=== PATIENT | female | born 1965 | race Caucasian/White ===

== ENCOUNTER 2021-10-03 13:27 | Emergency (ER) | payer OTHER ==
[2021-10-03 13:41] VITALS: BP 143/84; TEMP 98.2; BMI 28.3
[2021-10-03] MEDS ORDERED: diazePAM 5 MG TABLET PO ONE (14:27)
[2021-10-03] MEDS ORDERED: KETOROLAC TROMETHAMINE 30 MG/1 ML VIAL IM ONE (14:27)
[2021-10-03] MEDS ORDERED: KETOROLAC TROMETHAMINE 30 MG/1 ML VIAL ONE (14:32)
[2021-10-03] MEDS ORDERED: diazePAM 5 MG TABLET ONE (14:32)
[2021-10-03 15:20] VITALS: PULSE 92
== END 2021-10-03 15:56 | disposition home or self-care (01) ==
LOC: JERFT 13:27
PROC: 3E0233Z Introduction of Anti-inflammatory into Muscle, Percutaneous Approach (ICD-10-PCS; principal; 2021-10-03)
DX: M25.551 Pain in right hip (principal)
CPT/HCPCS: 73502-TC-RT-FY; 99284-25